=== PATIENT | female | born 1995 | race Caucasian/White ===

== ENCOUNTER 2024-03-30 03:54 | Emergency (ER) | payer OTHER, SELFPAY ==
--- NOTE | ~2024-03-30 | XR_ITS ---
Portable chest x-ray Comparison: None Clinical History: Chest pain Findings: Lungs are clear aside from calcified right upper lobe granuloma. No pleural effusion or pn eumothorax. Cardiomediastinal silhouette is unremarkable. Bones and soft tissues are unremarkable. Impression: No acute abnormality. Calcified right upper lobe granuloma. Reviewed, dictated and finalized at [facility]. Impression: No acute abnormality. Calcified right upper lobe granuloma.
--- NOTE | 2024-03-30 03:57 | ECG_ITS ---
SEE SCANNED COPY FOR CONFIRMED REPORT MTDD
[2024-03-30 04:00] VITALS: BP 122/85; PULSE 103; RESP 28; TEMP 36.8; O2SAT 100
[2024-03-30 04:12] LABS: Basophils Absolute Auto 0.1 K/mm3 (0.0-0.1); Basophils Percent Auto 0.5 % (0.2-1.2); Eosinophils Absolute Auto 0.3 K/mm3 (0-0.3); Eosinophils Percent Auto 2.4 % (0-4.4); Hematocrit 38.3 % (37.0-47.0); Hemoglobin 12.8 g/dL (12.0-15.0); Immature Granulocyte Absolute 0.06 K/mm3 (0.00-0.031); Immature Granulocyte Percent A 0.5 % (0-0.5); Lymphocytes Absolute Auto 3.77 K/mm3 (0.9-3.2); Lymphocytes Percent Auto 33.9 % (18.3-44.2); Mean Corpuscular HGB Conc 33.4 g/dl (32-36); Mean Corpuscular Volume 89.9 fl (80-100); Mean Platelet Volume 10.2 fl (7.4-10.4); Monocytes Absolute Auto 0.7 K/mm3 (0.1-0.6); Monocytes Percent Auto 6.3 % (2.6-8.5); Neutrophils Absolute Auto 6.3 K/mm3 (1.3-6.7); Neutrophils Percent Auto 56.4 % (45.5-73.1); Platelet Count Result 266 k/mm3 (150-375); Red Blood Count 4.26 M/mm3 (4.2-5.4); Red Cell Distribution Width 12.7 % (11.5-14.5); White Blood Count 11.1 K/mm3 (4.5-10.0)
[2024-03-30 04:22] LABS: Alanine Aminotransferase 23 U/L (6-35); Albumin Level 4.4 g/dL (3.5-5.1); Alkaline Phosphatase 109 U/L (38-126); Anion Gap 5 mmol/L (4-12); Aspartate Amino Transferase 27 U/L (14-36); Bilirubin,Total 0.4 mg/dL (0.2-1.3); Blood Urea Nitrogen 22 mg/dL (7-17); Calcium 9.6 mg/dL (8.4-10.2); Carbon Dioxide 27 mmol/L (22-30); Chloride 105 mmol/L (98-107); Estimated CRCL calculation 86 ml/min; Estimated Glomerular Filt Rate > 60; Glucose 109 mg/dL (65-110); Lipase 202 U/L (23-300); Sodium 137 mmol/L (137-145)
[2024-03-30 04:23] LABS: INR 0.8; Partial Thromboplastin Time 24.9 Seconds (22.3-36.8); Prothrombin Time 11.3 Seconds (11.1-14.7)
[2024-03-30 04:34] LABS: Troponin I < 0.012 ng/mL (0.000-0.034)
--- NOTE | 2024-03-30 04:53 | ED.GENADULT ---
HPI - General Adult General Chief complaint: Chest Pain Stated complaint: chest pain Time Seen by Provider: 03/30/24 04:03 History of Present Illness HPI narrative: This is a 28-year-old female presenting ED with chief complaint of chest pain. 15 minutes prior to arrival she was having sex with her new boyfriend. She then developed a dull pain in the center of her chest that radiates underneath her right breast. Patient has been having pain like this for over 10 years. Not associated with nausea vomiting or diaphoresis. no lower extremity edema his factors PE. Related Data Allergies Allergy/AdvReac Type Severity Reaction Status Date / Time No Known Allergies Allergy Verified 03/30/24 04:04 Exam Narrative: APPEARANCE: No apparent distress. Head: atraumatic. EYES: EOMI, NOSE: Atraumatic NECK: Trachea midline RESPIRATORY: No increased rate of breathing clear to auscultation CARDIOVASCULAR: RRR, No peripheral edema ABDOMINAL: Non-distended soft nontender MUSCULOSKELETAl: No obvious deformities NEURO: Alert. Moving 4/4 extremities SKIN:: Warm, dry. Normal color PSYCHIATRIC: Normal affect Course Vital Signs Vital signs: Vital Signs Temperature 98.3 F 03/30/24 04:00 Pulse Rate 103 H 03/30/24 04:00 Respiratory Rate 28 H 03/30/24 04:00 Blood Pressure 122/85 03/30/24 04:00 Pulse Oximetry 100 03/30/24 04:00 Oxygen Delivery Room Air 03/30/24 04:00 Temperature 98.3 F 03/30/24 04:00 Pulse Rate 103 H 03/30/24 04:00 Respiratory Rate 28 H 03/30/24 04:00 Blood Pressure 122/85 03/30/24 04:00 Pulse Oximetry 100 03/30/24 04:00 Oxygen Delivery Room Air 03/30/24 04:00 Medical Decision Making [facility] Narrative Medical decision making narrative: -Course: 28-year-old female presenting for chest pain times 10 years. Patient eloped before workup was completed. Vital Signs Vital Signs: Vital Signs Temperature 98.3 F 03/30/24 04:00 Pulse Rate 103 H 03/30/24 04:00 Respiratory Rate 28 H 03/30/24 04:00 Blood Pressure 122/85 03/30/24 04:00 Pulse Oximetry 100 03/30/24 04:00 Oxygen Delivery Room Air 03/30/24 04:00 Temperature 98.3 F 03/30/24 04:00 Pulse Rate 103 H 03/30/24 04:00 Respiratory Rate 28 H 03/30/24 04:00 Blood Pressure 122/85 03/30/24 04:00 Pulse Oximetry 100 03/30/24 04:00 Oxygen Delivery Room Air 03/30/24 04:00 Lab Data 03/30/24 04:06 03/30/24 04:06 Labs: Lab Results 03/30/24 Range/Units 04:06 WBC 11.1 H (4.5-10.0) K/mm3 RBC 4.26 (4.2-5.4) M/mm3 Hgb 12.8 (12.0-15.0) g/dL Hct 38.3 (37.0-47.0) % MCV 89.9 (80-100) fl MCH 30.0 (26-34) pg MCHC 33.4 (32-36) g/dl RDW 12.7 (11.5-14.5) % Plt Count 266 (150-375) k/mm3 MPV 10.2 (7.4-10.4) fl Immature Gran % (Auto) 0.5 (0-0.5) % Neut % (Auto) 56.4 (45.5-73.1) % Lymph % (Auto) 33.9 (18.3-44.2) % [place] % (Auto) 6.3 (2.6-8.5) % Eos % (Auto) 2.4 (0-4.4) % Baso % (Auto) 0.5 (0.2-1.2) % Lymph # (Auto) 3.77 H (0.9-3.2) K/mm3 [place] # (Auto) 0.7 H (0.1-0.6) K/mm3 Eos # (Auto) 0.3 (0-0.3) K/mm3 Baso # (Auto) 0.1 (0.0-0.1) K/mm3 Abs Immat Gran (auto) 0.06 H (0.00-0.031) K/mm3 Absolute Neuts (auto) 6.3 (1.3-6.7) K/mm3 Absolute Nucleated RBC 0.000 (0.0-0.012) K/mm3 Nucleated RBC % 0.0 (0.0-0.2) % PT 11.3 (11.1-14.7) Seconds INR 0.8 APTT 24.9 (22.3-36.8) Seconds Sodium 137 (137-145) mmol/L Potassium 4.0 (3.4-5.0) mmol/L Chloride 105 (98-107) mmol/L Carbon Dioxide 27 (22-30) mmol/L Anion Gap 5 (4-12) mmol/L BUN 22 H (7-17) mg/dL Creatinine 0.80 (0.7-1.0) mg/dL Estim Creat Clear Calc 86 ml/min Estimated GFR > 60 (59 - ) Glucose 109 (65-110) mg/dL Calcium 9.6 (8.4-10.2) mg/dL Total Bilirubin 0.4 (0.2-1.3) mg/dL AST 27 (14-36) U/L ALT 23 (6-35) U/L Alkaline Phosphatase 109 (38-126) U/L Troponin I < 0.012 (0.000-0.034) ng/mL Tot
--- NOTE | 2024-03-30 04:53 | PC.NURSE ---
pt requested to leave and not to wait for results or to continue treatment plan with ED staff. Pt was seen ambulating with a steady unassisted gait towards the exit of the ed with visitor.
== END 2024-03-30 04:54 | disposition left against medical advice (07) ==
PROVIDERS: Emergency Provider Emergency Medicine
DX: R07.9 Chest pain, unspecified (principal); G89.29 Other chronic pain; R00.0 Tachycardia, unspecified
CPT/HCPCS: 36415; 71045; 80053; 83690; 84484; 85025; 85610; 85730; 93005; 99284

== ENCOUNTER 2024-05-26 20:59 | Emergency (ER) | payer OTHER, SELFPAY ==
--- NOTE | ~2024-05-26 | US_ITS ---
Pelvic ultrasound. Clinical History: First trimester , evaluate for ectopic Technique: Realtime transabdominal and transvaginal scanning of the pelvis was performed. Color flow Doppler and Doppler spectral analysis were performed. Findings: The uterus is anteverted, and contains an intrauterine gestation. Foreman-rump length of 3 mm corresponds to an estimated gestational age of 6 weeks 0 days. heart rate is 105 bpm.. The right ovary measures 3.0 x 1.5 x 2.5 cm. No significant right ovarian or adnexal mass is seen. The left ovary measures 2.8 x 2.1 x 2.7 cm. No significant left ovarian or adnexal mass is seen. There is no evidence of free fluid in the cul de sac. Impression: Live intrauterine gestation, with estimated gestational age of 6 weeks 0 days. heart rate is 10 5 bpm. Reviewed, dictated and finalized at [facility]. Impression: Live intrauterine gestation, with estimated gestational age of 6 weeks 0 days. heart rate is 105 bpm.
[2024-05-26 21:07] VITALS: BP 122/58; PULSE 99; RESP 18; TEMP 36.8; O2SAT 100
[2024-05-26 22:42] LABS: Add Urine Microscopic? NO; Appearance Urine Clear (Clear); Bilirubin Urine Negative (Negative); Blood Urine Negative (Negative); Color Urine Yellow (Yellow); Glucose Urine UA Negative (Negative); Ketones Urine Negative (Negative); Leukocyte Esterase Ur Negative LEU/UL (Negative); Nitrate Urine Negative (Negative); Protein Urine Negative (Negative); Specific Grav Ur 1.022 (1.001-1.035); pH Urine 5.5 (5.0-9.0)
--- NOTE | 2024-05-27 00:02 | ED.EXTPRO ---
HPI - Extremity Problem General Chief complaint: Extremity Problem,Nontraumatic Stated complaint: shoulder pain Time Seen by Provider: 05/26/24 23:48 Source: patient and other (boyfriend/fiance) Mode of arrival: ambulatory Limitations: no limitations History of Present Illness HPI Narrative: female who presents with complaint of bilateral shoulder pain. She initially states it is intermittent but then states it stays there. Not employed and doesn't really perform a lot of repetitive movements. She describes it as sharp pain. No shortness of breath. Was reading on her rodney that it might be a sign/symptom of ectopic . No vaginal bleeding or abdominal pain. LMP 03/13/2024. Positive home test but hasn't estbalished with an ObGyn for this as insurance states she has to be 9 weeks along. Has not taken anything for pain but is taking vitamins. Would like a referral to an ObGyn; would prefer it isn't [place]. Related Data Allergies Allergy/AdvReac Type Severity Reaction Status Date / Time No Known Allergies Allergy Verified 03/30/24 04:04 [facility] Social History Social History (Updated 05/28/24 @ 20:33 by Sylvie Casarez MD) Occupation/Education: unemployed Gender identity (if verbalized by the patient): Female Additional gender identity comments: Has a boyfriend/fiance Sexual Orientation (if Verbalized by the Patient): Straight or Heterosexual Exam Narrative: GENERAL: Well-appearing, well-nourished, and in no acute distress. HEAD: Normocephalic, atraumatic. EYES: Non injected, non icteric ENT: Nares clear, no rhinorrhea or epistaxis. NECK: Supple. CHEST: Speaking in full sentences. No respiratory distress. HEART: Regular rate and rhythm. . ABDOMEN: Soft, nondistended. EXTREMITIES: Normal range of motion. No edema. SKIN: Warm, dry, no rash. NEURO: No focal deficits. Alert and oriented x3. PSYCH: Normal mood and affect. Course Vital Signs Vital signs: Vital Signs Temperature 98.3 F 05/26/24 21:07 Pulse Rate 99 05/26/24 21:07 Respiratory Rate 18 05/26/24 21:07 Blood Pressure 122/58 L 05/26/24 21:07 Pulse Oximetry 100 05/26/24 21:07 Oxygen Delivery Room Air 05/26/24 21:07 Temperature 98.3 F 05/26/24 21:07 Pulse Rate 84 05/27/24 02:45 Respiratory Rate 16 05/27/24 02:45 Blood Pressure 122/64 05/27/24 02:45 Pulse Oximetry 100 05/27/24 02:45 Oxygen Delivery Room Air 05/26/24 21:07 MDM - Extremity (Nontraumatic) MDM Narrative Medical decision making narrative: Patient is a female estimated to be at 10w 4d by reported LMP 03/13/24 but states she is <9 weeks along and thus hasn't established with ObGyn. She is concerned for ectopic based on bilateral shoulder pain and reading that this could be a sign of this on her rodney. Not employed and no repetitve movements. In the emergency department she is afebrile with Acceptable vital signs. There is literature/data supporting this as a sign of ectopic preganncy and intrauterine preganncy has not been established so proceed with work up. IUP confirmed on US. Patient discharged in stable condition and advised on Tylenol. Provided referral to senior instrumentation engineer ObGyn on this date. Advised to continue taking vitamins. Differential Diagnosis Differential diagnosis: Likely other (intrauterine /ectopic ; MSK pain) Lab Data Attestation: I reviewed the patient's lab results. 05/27/24 00:21 05/27/24 00:21 Labs: Lab Results 05/26/24 05/27/24 Range/Units 22:34 00:21 WBC 8.9 (4.5-10.0) K/mm3 RBC 3.99 L (4.2-5.4) M/mm3 Hgb 12.1 (12.0-15.0) g/dL Hct 35.5 L (37.0-47.0) % MCV 89.0 (80-100) fl MCH 30.3 (26-34) pg MCHC 34.1 (32-36) g/dl RDW 13.2 (11.5-14.5) % Plt Count 204 (150-375) k/mm3 MPV 10.4 (7.4-10.4) fl Immature Gran % (Auto) 0.7 H (0-0.5
[2024-05-27 00:29] LABS: Basophils Absolute Auto 0.1 K/mm3 (0.0-0.1); Basophils Percent Auto 0.6 % (0.2-1.2); Eosinophils Absolute Auto 0.1 K/mm3 (0-0.3); Eosinophils Percent Auto 1.2 % (0-4.4); Hematocrit 35.5 % (37.0-47.0); Hemoglobin 12.1 g/dL (12.0-15.0); Immature Granulocyte Absolute 0.06 K/mm3 (0.00-0.031); Immature Granulocyte Percent A 0.7 % (0-0.5); Lymphocytes Absolute Auto 2.71 K/mm3 (0.9-3.2); Lymphocytes Percent Auto 30.6 % (18.3-44.2); Mean Corpuscular HGB Conc 34.1 g/dl (32-36); Mean Corpuscular Hemoglobin 30.3 pg (26-34); Mean Platelet Volume 10.4 fl (7.4-10.4); Monocytes Absolute Auto 0.8 K/mm3 (0.1-0.6); Monocytes Percent Auto 8.6 % (2.6-8.5); Neutrophils Absolute Auto 5.2 K/mm3 (1.3-6.7); Neutrophils Percent Auto 58.3 % (45.5-73.1); Platelet Count Result 204 k/mm3 (150-375); Red Blood Count 3.99 M/mm3 (4.2-5.4); Red Cell Distribution Width 13.2 % (11.5-14.5); White Blood Count 8.9 K/mm3 (4.5-10.0)
[2024-05-27 00:37] LABS: Alanine Aminotransferase 13 U/L (6-35); Albumin Level 4.1 g/dL (3.5-5.1); Alkaline Phosphatase 53 U/L (38-126); Anion Gap 4 mmol/L (4-12); Aspartate Amino Transferase 24 U/L (14-36); Bilirubin,Total 0.2 mg/dL (0.2-1.3); Blood Urea Nitrogen 16 mg/dL (7-17); Calcium 9.7 mg/dL (8.4-10.2); Carbon Dioxide 26 mmol/L (22-30); Chloride 107 mmol/L (98-107); Estimated CRCL calculation 97 ml/min; Estimated Glomerular Filt Rate > 60; Glucose 92 mg/dL (65-110); Potassium 3.9 mmol/L (3.4-5.0); Sodium 137 mmol/L (137-145)
[2024-05-27] MEDS: ACETAMINOPHEN 500 MG TABLET 1000 MG PO (00:54)
[2024-05-27 02:45] VITALS: BP 122/64; PULSE 84; RESP 16; O2SAT 100
== END 2024-05-27 02:48 | disposition home or self-care (01) ==
PROVIDERS: Emergency Provider Student in an Organized Health Care Education/Training Program
DX: O26.891 Other specified pregnancy related conditions, first trimester (principal); M25.512 Pain in left shoulder; M25.511 Pain in right shoulder; Z3A.01 Less than 8 weeks gestation of pregnancy
CPT/HCPCS: 36415; 76801; 76817; 80053; 81003; 81025; 84702; 85025; 95864; 99284; A9270